=== PATIENT | male | born 1990 | race Two or more races ===

== ENCOUNTER 2024-08-21 04:44 | Emergency (ER) | payer OTHER, MEDICAID ==
[~2024-08-21] VITALS: Ht 185.4 cm; Wt 82.6 kg
[2024-08-21 04:52] VITALS: BP 142/95; PULSE 109; RESP 20; TEMP 97.7; O2SAT 95
[2024-08-21] MEDS: KETOROLAC TROMETH 60MG/2ML VIAL IM ONE (05:23)
--- NOTE | 2024-08-21 05:27 | DVH ---
EXAM: XR Lumbosacral Spine, 2 or 3 Views CLINICAL INDICATION: LUMBAR BACK PAIN TECHNIQUE: Frontal and lateral views of the lumbar spine and sacrum. COMPARISON: None FINDINGS: VERTEBRAE: Unremarkable. No acute fracture. Normal alignment. SACRUM/COCCYX: Unremarkable as visualized. No acute fracture. DISC SPACES: No acute findings. No significant narrowing. SOFT TISSUES: Unremarkable. OTHER FINDINGS: . None. IMPRESSION: No acute fracture.
[2024-08-21] MEDS ORDERED: CYCL-837 PO (05:34)
[2024-08-21] MEDS ORDERED: IBUP-1456 PO (05:34)
--- NOTE | 2024-08-21 05:34 | ED.PDOC ---
Back pain HPI HPI Comments 34-YEAR-OLD MALE PRESENTS TO ER WITH COMPLAINTS OF BACK PAIN X1 DAY. PATIENT WITH PAST MEDICAL HISTORY SIGNIFICANT FOR CHRONIC BACK PAIN REPORTS THAT HE STARTED EXPERIENCING 7/10 DIFFUSE TO LOWER LUMBAR BACK PAIN AT 10:00 P.M. PRIOR TO ARRIVAL TO ER THAT STARTED WHILE HE WAS SITTING DOWN WATCHING TV. STATES THAT HE TOOK MOTRIN FOR HIS PAIN WITH SLIGHT RELIEF. NOTES HIS PAIN IS WORSE WITH MOVEMENT AND BETTER WITH REST AND PRESENTS TO ER IN WHEELCHAIR, IN MILD DISTRESS. DENIES FEVER, BODY ACHES, CHILLS, SHORTNESS OF BREATH, CHEST PAIN, NAUSEA/VOMITING, NUMBNESS/TINGLING, ABDOMINAL/PELVIC PAIN, NIGHT SWEATS, TRAUMA/FALLS, CHANGES IN URINATION/BM OR ANY FURTHER SYMPTOMS/COMPLAINTS Chief Complaint: Back Pain Time Seen by MD: 04:51 Primary Care Provider: UNKNOWN Reviewed Notes: Nurses Notes, Medications, Allergies Allergies: Coded Allergies: NO KNOWN ALLERGIES (Unverified , 08/21/24) Home Meds Active Scripts Ibuprofen (Ibuprofen) 800 Mg Tab, 1 TAB PO TID PRN, #30 TAB 0 Refills Prov:NAVJOT DAVIS 08/21/24 Cyclobenzaprine Hcl (Cyclobenzaprine Hcl) 5 Mg Tab, 1 TAB PO QHSP, #14 TAB 0 Refills Prov:NAVJOT DAVIS 08/21/24 Information Source: Patient Mode of Arrival: Wheelchair Past Medical History Past Medical History (Other): CHRONIC BACK PAIN Surgical History: Denies all surgeries Family History Family History: Unknown Social History Smoker: Non-Smoker Alcohol: Denies ETOH Use Drugs: Denies Drug Use Lives In: Home Constitutional: denies: chills, diaphoresis, fatigue, fever, malaise, sweats, weakness, others EENTM: denies: blurred vision, double vision, ear bleeding, ear discharge, ear drainage, ear pain, ear ringing, eye pain, eye redness, hearing loss, mouth pain, mouth swelling, nasal discharge, nose bleeding, nose congestion, nose pain, photophobia, tearing, throat pain, throat swelling, voice changes, others Respiratory: denies: cough, hemoptysis, orthopnea, SOB at rest, shortness of breath, SOB with excertion, stridor, wheezing, others Cardiovascular: denies: chest pain, dizzy spells, diaphoresis, Dyspnea on exertion, edema, irregular heart beat, left arm pain, lightheadedness, palpitations, PND, syncope, others Gastrointestinal: denies: abdomen distended, abdominal pain, blood streaked bowels, constipated, diarrhea, dysphagia, difficulty swallowing, hematemesis, melena, nausea, poor appetite, poor fluid intake, rectal bleeding, rectal pain, vomiting, others Genitourinary: denies: burning, dysuria, flank pain, frequency, hematuria, inco ntinence, penile discharge, penile sore, pain, testicle pain, testicle swelling, urgency, others Neurological: denies: dizziness, fainting, headache, left sided numbness, left sided weakness, numbness, paresthesia, pre-existing deficit, right sided numbness, right sided weakness, seizure, speech problems, tingling, tremors, weakness, others Musculoskeletal: reports: others ( STATED IN HPI) Integumetry: denies: bruises, change in color, change in hair/nails, dryness, laceration, lesions, lumps, rash, wounds, others Allergic/Immunocompromised: denies: Difficulty Healing, Frequent Infections, Hives, Itching, others Hematologic/Lymphatic: denies: anemia, blood clots, easy bleeding, easy bruising, swollen glands, others Endocrine: denies: excessive hunger, excessive sweating, excessive thirst, excessive urination, flushing, intolerance to cold, intolerance to heat, unexplained weight gain, unexplained weight loss, others Psychiatric: denies: anxiety, bipolar disorder, depression, hopeless, panic disorder, schizophrenia, sleepless, suicidal, others Physical Exam General Appearance: Mild Distress HEENT: PERRL/EOMI Neck: Full Range of Motion, Non-Tender, Normal Respiratory: Chest Non-Tender, Lungs Clear, No Accessory Muscle Use, No Respiratory Distress, Normal Breath Sounds Cardiovascular: No Murmur, No Gallop, Regular Rate/Rhythm Breast Exam: Deferred Gastrointestinal: Non Tender, No Pulsatile Mass, Soft Genitalia: Deferred Pelvic: Deferred Rectal: Deferred Extremities: No calf tenderness, Normal capillary refill Musculoskeletal : Extremity Location: Back (TTP TO BILATERAL LOWER LUMBAR PARASPINALS NOTED. NO SKIN CHANGES NOTED. GAIT SLOW DUE TO PAIN LOCALIZED TO BILATERAL LOWER LUMBAR PARASPINALS) Neurologic: Alert, rivet bucker II-XII nml as Tested, No Motor Deficits, No Sensory Deficits Cerebellar Function: Normal Reflexes: Normal Skin: Dry, Normal Color, Warm Peripheral Pulses: 2+ femoral (R), 2+ femoral (L), 2+ dorsalis pedis (R), 2+ dorsalis pedis (L), 2+ Radial (R), 2+ Radial (L), 2+ Brachial (R), 2+ Brachial (L) Lymphatic: No Adenopathy Was a procedure done? Was a procedure done?: No Sedation Sedation?: No Back Pain Differential Dx Differential Diagnosis: AAA, Fracture, Urinary Tract Infection, Urolithiasis X-Ray, Labs, Meds, VS Vital Signs Date Time Temp Pulse Resp B/P (MAP) Pulse Ox O2 Delivery O2 Flow Rate FiO2 08/21/24 04:52 Room Air 08/21/24 04:52 97.7 109 20 142/95 (111) 95 08/21/24 04:52 97.7 109 20 142/95 (111) 95 97.7 Current Medications Medications (Trade) Dose Ordered Sig/Michelle Route Start Time Stop Time Status Last Admin Ketorolac Tromethamine (Toradol Injection) 60 mg ONCE ONCE IM 08/21/24 05:00 08/21/24 05:01 DC 08/21/24 05:23 PATIENT: NINA SALESACCT: [id number]: [id number] : 1990 LOC: ER ROOM / BED: / AGE / SEX: 34 / M ADM STATUS: REG ER SERVICE [id number] ORDERING PHYSICIAN: NAVJOT DAVIS PROCEDURE(s): LUMB2 - LUMBAR SPINE 3 VIEW REASON: LUMBAR BACK PAIN ORDER NUMBER(s): [id number], ACCESSION NUMBER(s): [id number] EXAM: XR Lumbosacral Spine, 2 or 3 Views CLINICAL INDICATION: LUMBAR BACK PAIN TECHNIQUE: Frontal and lateral views of the lumbar spine and sacrum. COMPARISON: None FINDINGS: VERTEBRAE: Unremarkable. No acute fracture. Normal alignment. SACRUM/COCCYX: Unremarkable as visualized. No acute fracture. DISC SPACES: No acute findings. No significant narrowing. SOFT TISSUES: Unremarkable. OTHER FINDINGS: . None. IMPRESSION: No acute fracture. ATED BY: ADDIS HEMPHILL MD DICTATED DATE/TIME: 08/21/24523 SIGNED BY: ADDIS HEMPHILL MD SIGNED DATE/TIME: 08/21/24523 CC: LUMBAR SPINE X-RAY REVIEWED TORADOL 60 MG IM ORDERED PATIENT NEUROVASCULARLY INTACT, REPORTED IMPROVEMENT IN SYMPTOMS AND IN NO DISTRESS PRIOR TO DISCHARGE ADVISED ON REST/NO STRENUOUS ACTIVITY ADVISED TO FOLLOW UP WITH PCP IN 1-2 DAYS PATIENT VERBALIZED UNDERSTANDING AND AGREEABLE WITH CURRENT PLAN OF CARE ADVISED TO RETURN TO ER IMMEDIATELY IF SYMPTOMS WORSEN Images Reviewed?: Images reviewed and evaluated by me Time of 1ST Reevaluation: 05:12 Reevaluation 1ST: N/A Patient Education/Counseling: Diagnosis, Treatment, Prognosis, Need For Follow Up Family Education/Counseling: No Family Present Departure 1 Departure Time of Disposition: 05:32 Impression: Primary Impression: Lumbar strain Qualified Codes: S39.012A - Strain of muscle, fascia and tendon of lower back, initial encounter Disposition: HOME / SELF CARE / HOMELESS Condition: Stable e-Prescriptions Ibuprofen (Ibuprofen) 800 Mg Tab 1 TAB PO TID PRN, #30 TAB 0 Refills Prov: NAVJOT DAVIS 08/21/24 Cyclobenzaprine Hcl (Cyclobenzaprine Hcl) 5 Mg Tab 1 TAB PO QHSP, #14 TAB 0 Refills Prov: NAVJOT DAVIS 08/21/24 Discharged With: Significant Other Critical Care Note Critical Care Time?: No Stability Stability form required: No Heart Score Heart Score: Heart Score Response (Comments) Value History N/A 0 EKG N/A 0 Age N/A 0 Risk Factors N/A 0 Troponin N/A 0 Total 0 NAVJOT DAVIS Aug 21, 2024 05:34
== END 2024-08-21 05:34 | disposition home or self-care (01) ==
LOC: ER 04:44
DX: S39.012A Strain of muscle, fascia and tendon of lower back, initial encounter (principal)
CPT/HCPCS: 72100; 96372; 99283; J1885